=== PATIENT | female | born 1970 ===

== ENCOUNTER 2016-09-08 14:02 | Observation (INO) | payer OTHER ==
[2016-09-08 14:02] VITALS: BMI 34.7
[2016-09-08] MEDS ORDERED: Aspirin 325 mg EC Tablets PO STA (14:40)
--- NOTE | 2016-09-08 14:45 | ED PDOC ---
Arrival/HPI - General Chief Complaint: Chest Pain Time Seen by Provider: 09/08/16 14:20 Historian: Patient, Other (Friend, who translated for patient) - History of Present Illness Narrative History of Present Illness (Text): 09/08/16 14:41 A 46 year old female presents to the emergency department complaining of left sided chest pain since this morning. History obtained through friend who translated for patient. Patient reports radiating pain towards left back, left shoulder and left arm. Patient notes dyspnea on exertion but denies any fever, chills, nausea, vomiting, abdominal pain, headache, dizziness, diaphoresis or any other complaints. Patient reports prior to this morning she was feeling well and denied any complaints. Patients last menstrual period was 4 months ago. PMD: Dr. Casey Mays Time/Duration: Other (This morning) Symptom Course: Unchanged Quality: Other Context: Home Associated Symptoms (Text): 09/08/16 15:32 Nurse Prn reports that the patient went to bed last night feeling fine. She woke up this morning and was well. She developed some nausea after waking up. She then developed chest pain on the left side which she describes as an aching. The pain radiates into her back and left shoulder and left upper extremity. There is some dyspnea on exertion. No diaphoresis. No dizziness. She is currently pain-free. Past Medical History - Provider Review Nursing Documentation Reviewed: Yes - Tetanus Immunization Tetanus Immunization: Unknown - Cardiac Hx Cardiac Disorders: Yes Hx Hyperlipemia: Yes - Pulmonary Hx Respiratory Disorders: No - Neurological Hx Neurological Disorder: No - HEENT Hx HEENT Disorder: No - Renal Hx Renal Disorder: No - Endocrine/Metabolic Hx Endocrine Disorders: No - Hematological/Oncological Hx Blood Disorders: Yes Hx Hepatitis B: Yes - Integumentary Hx Dermatological Disorder: No - Musculoskeletal/Rheumatological Hx Musculoskeletal Disorders: No - Gastrointestinal Hx Gastrointestinal Disorders: No - Genitourinary/Gynecological Hx Genitourinary Disorders: No - Psychiatric Hx Psychophysiologic Disorder: No Hx Depression: No Hx Emotional Abuse: No Hx Physical Abuse: No Hx Substance Use: No - Surgical History Hx Appendectomy: Yes Hx Section: Yes - Anesthesia Hx Anesthesia: Yes Hx Anesthesia Reactions: No Hx Malignant Hyperthermia: No - Suicidal Assessment Feels Threatened In Home Enviroment: No Family/Social History - Physician Review Nursing Documentation Reviewed: Yes Family/Social History: No Known Family HX Smoking Status: Never Smoked Hx Alcohol Use: Yes (Occasionally) Hx Substance Use: No Hx Substance Use Treatment: No Allergies/Home Meds Allergies/Adverse Reactions: Allergies No Known Allergies Allergy (Verified 09/08/16 14:12) Home Medications: Home Meds Medication Instructions Recorded Confirmed No Known Home Med 11/19/11 09/08/16 Review of Systems - Physician Review All systems were reviewed & negative as marked: Yes - Review of Systems Constitutional: absent: Fevers, Night Sweats Respiratory: SOB. absent: Cough, Wheezing Cardiovascular: Chest Pain (Radiating to left back, shoulder and arm), CONNELLY Gastrointestinal: absent: Abdominal Pain, Nausea, Vomiting Neurological: absent: Headache, Dizziness Endocrine: absent: Diaphoresis Physical Exam Vital Signs Reviewed: Yes Vital Signs Temp Pulse Resp BP Pulse Ox 09/08/16 16:02 86 18 155/94 H 100 09/08/16 14:38 97.9 F 90 18 174/95 H 100 09/08/16 14:14 98.1 F 94 H 17 162/95 H 99 Temperature: Afebrile Blood Pressure: Hypertensive Pulse: Regular Respiratory Rate: Normal Appearance: Positive for: Non-Toxic, Comfortable, Other (Obese female) Pain Distress: None Mental Status: Positive for: Alert and Oriented X 3 - Systems Exam Head: Present: Atraumatic, Normocephalic Pupils: Present: PERRL Extroacular Muscles: Present: EOMI Conjunctiva: Present: Normal Mouth: Present: Moist Mucous Membranes Pharnyx: No: ERYTHEMA, EXUDATE, TONSILS ENLARGED Neck: Present: Normal Range of Motion Respiratory/Chest: Present: Clear to Auscultation, Good Air Exchange. No: Respiratory Distress, Accessory Muscle Use, Tender to Palpation Cardiovascular: Present: Regular Rate and Rhythm, Normal S1, S2. No: Murmurs Abdomen: Present: Normal Bowel Sounds. No: Tenderness, Distention, Peritoneal Signs, Rebound, Guarding Back: Present: Normal Inspection Upper Extremity: Present: Normal Inspection. No: Cyanosis, Edema Lower Extremity: Present: Normal Inspection. No: Edema Neurological: Present: GCS=15, CN II-XII Intact, Speech Normal, Motor Func Grossly Intact Skin: Present: Warm, Dry, Normal Color. No: Rashes Psychiatric: Present: Alert, Oriented x 3, Normal Insight, Normal Concentration Medical Decision Making ED Course and Treatment: 09/08/16 14:40 Impression: A 46 year old female with left sided chest pain radiating to left back, shoulder and arm. Patient notes dyspnea on exertion. Plan: -- Chest xray -- EKG -- Labs -- Aspirin -- Reassess and disposition Prior Visits: Notes and results from previous visits were reviewed. Patient last seen in the ED on 10/10/14 for paresthesia. Progress Notes: 09/08/16 15:34 EKG shows normal sinus rhythm rate approximately [address] or T-wave changes 09/08/16 18:[address]I Dodd - Lab Interpretations Lab Results: 09/08/16 15:00 09/08/16 15:00 Lab Results 09/08/16 15:00: WBC 8.2, RBC 4.89, Hgb 12.9, Hct 40.0, MCV 81.8, MCH 26.4, MCHC 32.3, RDW 14.7 H, Plt Count 222, MPV 12.6 H, Gran % 68.6 H, Lymph % (Auto) 22.9 , [place] % (Auto) 7.3 H, Eos % (Auto) 1.1 L, Baso % (Auto) 0.1, Gran # 5.65, Lymph # 1.9, [place] # 0.6, Eos # 0.1, Baso # 0.01, PT 10.5, INR 0.97, APTT 26.8, D -Dimer, Quantitative 0.21, Sodium 142, Potassium 3.7, Chloride 102, Carbon Dioxide 31, Anion Gap 13, BUN 13, Creatinine 0.7, Est GFR ( Amer) > 60, Est GFR (Non-Af Amer) > 60, Random Glucose 82, Calcium 9.9, Total Bilirubin 0.6 , AST 30, ALT 49, Alkaline Phosphatase 94, Lactate Dehydrogenase 490, Total Creatine Kinase 100, Troponin I < 0.01, NT-Pro-B Natriuret Pep 97.2, Total Protein 8.5 H, Albumin 4.4, Globulin 4.1, Albumin/Globulin Ratio 1.1 I have reviewed the lab results: Yes - RAD Interpretation Radiology Orders: 09/08/16 14:41 CHEST PORTABLE [RAD] Stat - Medication Orders Current Medication Orders: Enoxaparin Sodium (Lovenox) 40 mg SC DAILY AMADEO PRN Reason: Protocol Ibuprofen (Motrin Tab) 400 mg PO Q6 PRN PRN Reason: Pain, Mild (1-3) Metoprolol Tartrate (Lopressor) 25 mg PO BID [facility] Ondansetron HCl (Zofran Inj) 4 mg IVP Q6 PRN PRN Reason: Nausea/Vomiting Pantoprazole Sodium (Protonix Ec Tab) 40 mg PO DAILY [facility] Last Admin: 09/08/16 17:04 Dose: 40 MG Discontinued Medications Aspirin (Ecotrin) 325 mg PO STAT STA Stop: 09/08/16 14:41 Last Admin: 09/08/16 15:00 Dose: 325 MG Aspirin (Ecotrin) 81 mg PO STAT STA Stop: 09/08/16 16:30 Last Admin: 09/08/16 16:44 Dose: Nitroglycerin (Nitro-Bid 2% Oint) 1 ea TOP STAT STA Stop: 09/08/16 15:50 Last Admin: 09/08/16 16:00 Dose: 1 EA - Scribe Statement The provider has reviewed the documentation as recorded by the Any Isaac Provider Scribe Attestation: All medical record entries made by the Scribe were at my direction and personally dictated by me. I have reviewed the chart and agree that the record accurately reflects my personal performance of the history, physical exam, medical decision making, and the department course for this patient. I have also personally directed, reviewed, and agree with the discharge instructions and disposition. Disposition/Present on Arrival - Present on Arrival Any Indicators Present on Arrival: No History of DVT/PE: No History of Uncontrolled Diabetes: No Urinary Catheter: No History of Decub. Ulcer: No History Surgical Site Infection Following: None - Disposition Have Diagnosis and Disposition been Completed?: Yes Diagnosis: Chest pain, Hypertension, Nausea Disposition: HOSPITALIZED Disposition Time: 15:51 Patient Plan: Observation, Telemetry Patient Problems: Current Active Problems Problem Status Diagnosed Chest pain Acute Hypertension Acute Nausea Acute Condition: GOOD
[2016-09-08 15:09] LABS: ADD MANUAL DIFF? NO
[2016-09-08 15:15] LABS: BASO # 0.01 K/mm3 (0.0-2.0); BASO % 0.1 % (0.0-3.0); EOS # 0.1 (0.0-0.7); EOS % 1.1 % (1.5-5.0); GRAN # 5.65 (1.4-6.5); GRAN % 68.6 % (50.0-68.0); LYMPH # 1.9 (1.2-3.4); LYMPH % 22.9 % (22.0-35.0); MEAN CELL VOLUME 81.8 fL (80.0-105.0); MEAN CORPUSCULAR HEMOGLOBIN 26.4 pg (25.0-35.0); MEAN CORPUSCULAR HGB CONC 32.3 g/dl (31.0-37.0); MEAN PLATELET VOLUME 12.6 fl (7.0-11.0); MONO # 0.6 (0.1-0.6); MONO % 7.3 % (1.0-6.0); PLATELET COUNT 222 10^3/uL (120.0-450.0); RED CELL DISTRIBUTION WIDTH 14.7 % (11.5-14.5); WHITE BLOOD COUNT 8.2 10^3/ul (4.5-11.0)
[2016-09-08 15:22] LABS: ALB/GLOB RATIO 1.1 (1.1-1.8); ALKALINE PHOSPHATASE 94 U/L (38-133); ALT/SGPT 49 U/L (7-56); AST/SGOT 30 U/L (15-39); BILIRUBIN,TOTAL 0.6 mg/dL (0.2-1.3); BLOOD UREA NITROGEN 13 mg/dL (7-21); CALCIUM 9.9 mg/dL (8.4-10.5); CARBON DIOXIDE 31 mmol/L (21-33); CHLORIDE 102 mmol/L (98-107); GFR AFRICAN-AMERICAN > 60; GLUCOSE,RANDOM 82 mg/dL (70-110); POTASSIUM 3.7 mmol/L (3.6-5.0); SODIUM 142 mmol/L (132-148); TOTAL PROTEIN 8.5 g/dL (5.8-8.3)
[2016-09-08 15:27] LABS: INR 0.97 (0.93-1.08); PARTIAL THROMBOPLASTIN TIME 26.8 Seconds (23.7-30.8)
[2016-09-08 15:34] LABS: D DIMER 0.21 mg/L FEU (0-0.50)
[2016-09-08 15:42] LABS: TROPONIN I < 0.01 ng/mL
[2016-09-08] MEDS ORDERED: Nitroglycerin 2% Ointment Foilpak UD TOP STA (15:49)
--- NOTE | 2016-09-08 16:35 | CP.PCM.HP ---
<Rea Norton - Last Filed: 09/08/16 16:38> History of Present Illness - History of Present Illness History of Present Illness: CC: Chest pain 46 year old female with no significant past medical history presents to hospital with chest pain that started this morning. Patient's family is at bedside and help translate. At 8 am in the morning patient began to feel nauseous. 2 hours later patient developed chest pain located in center of chest that radiated to left side, straight back and left arm. Pain felt like an ache. No relieving or aggravating factors. Patient has never experienced anything like this before. Denies any trauma to area or any pain with palpation. Patient denies having any SOB, CP currently, abd pain, N/V/D/C, dysuria, LE pain. PMHx: denies Sx: c section, appendectomy NKDA Medications: none Social: denies tobacco, ETOH or drug use PMD: Dr. Casey Mays Present on Admission - Present on Admission Any Indicators Present on Admission: No Review of Systems - Review of Systems All systems: reviewed and no additional remarkable complaints except Past Patient History - Tetanus Immunizations Tetanus Immunization: Unknown - Past Social History Smoking Status: Never Smoked Chewing Tobacco Use: No Cigar Use: No Alcohol: None Drugs: Denies Home Situation {Lives}: With Family - CARDIAC Hx Cardiac Disorders: Yes - PULMONARY Hx Respiratory Disorders: No - NEUROLOGICAL Hx Neurological Disorder: No - HEENT Hx HEENT Problems: No - RENAL Hx Chronic Kidney Disease: No - ENDOCRINE/METABOLIC Hx Endocrine Disorders: No - HEMATOLOGICAL/ONCOLOGICAL Hx Blood Disorders: Yes Hx Hepatitis B: Yes - INTEGUMENTARY Hx Dermatological Problems: No - MUSCULOSKELETAL/RHEUMATOLOGICAL Hx Musculoskeletal Disorders: No - GASTROINTESTINAL Hx Gastrointestinal Disorders: No - GENITOURINARY/GYNECOLOGICAL Hx Genitourinary Disorders: No - PSYCHIATRIC Hx Psychophysiologic Disorder: No Hx Depression: No Hx Emotional Abuse: No Hx Physical Abuse: No Hx Substance Use: No - SURGICAL HISTORY Hx Appendectomy: Yes Hx Section: Yes - ANESTHESIA Hx Anesthesia: Yes Hx Anesthesia Reactions: No Hx Malignant Hyperthermia: No Meds Allergies/Adverse Reactions: Allergies Allergy/AdvReac Type Severity Reaction Status Date / Time No Known Allergies Allergy Verified 09/08/16 14:12 Physical Exam - Constitutional Appears: Non-toxic, No Acute Distress - Head Exam Head Exam: ATRAUMATIC, NORMAL INSPECTION - Eye Exam Eye Exam: EOMI Pupil Exam: PERRL - ENT Exam ENT Exam: Mucous Membranes Moist - Respiratory Exam Respiratory Exam: Clear to Auscultation Bilateral, NORMAL BREATHING PATTERN. absent: Rales, Rhonchi, Wheezes - Cardiovascular Exam Cardiovascular Exam: REGULAR RHYTHM, +S1, +S2. absent: Diastolic murmur, Gallop , Rubs, Systolic Murmur Additional comments: left sided tenderness to palpation - GI/Abdominal Exam GI & Abdominal Exam: Normal Bowel Sounds, Soft. absent: Distended, Firm, Guarding, Rigid, Tenderness - Extremities Exam Extremities exam: Negative for: calf tenderness, pedal edema, tenderness - Neurological Exam Neurological exam: Alert, Oriented x3 - Psychiatric Exam Psychiatric exam: Normal Affect, Normal Mood - Skin Skin Exam: Dry, Intact, Normal Color, Warm Results - Vital Signs Recent Vital Signs: Last Vital Signs Temp 97.9 F 09/08/16 14:38 Pulse 86 09/08/16 16:02 Resp 18 09/08/16 16:02 BP 155/94 H 09/08/16 16:02 Pulse Ox 100 09/08/16 16:02 - Labs Result Diagrams: 09/08/16 15:00 09/08/16 15:00 Labs: Laboratory Results - last 24 hr 09/08/16 15:00 WBC 8.2 RBC 4.89 Hgb 12.9 Hct 40.0 MCV 81.8 MCH 26.4 MCHC 32.3 RDW 14.7 H Plt Count 222 MPV 12.6 H Gran % 68.6 H Lymph % (Auto) 22.9 [place] % (Auto) 7.3 H Eos % (Auto) 1.1 L Baso % (Auto) 0.1 Gran # 5.65 Lymph # 1.9 [place] # 0.6 Eos # 0.1 Baso # 0.01 PT 10.5 INR 0.97 APTT 26.8 D-Dimer, Quantitative 0.21 Sodium 142 Potassium 3.7 Chloride 102 Carbon Dioxide 31 Anion Gap 13 BUN 13 Creatinine 0.7 Est GFR ( Amer) > 60 Est GFR (Non-Af Amer) > 60 Random Glucose 82 Calcium 9.9 Total Bilirubin 0.6 AST 30 ALT 49 Alkaline Phosphatase 94 Lactate Dehydrogenase 490 Total Creatine Kinase 100 Troponin I < 0.01 NT-Pro-B Natriuret Pep 97.2 Total Protein 8.5 H Albumin 4.4 Globulin 4.1 Albumin/Globulin Ratio 1.1 - EKG Data EKG Interpreted by: ER Physician Assessment & Plan - Assessment and Plan (Free Text) Assessment: 46 year old female with no significant past medical history is admitted for chest pain r/o ACS. Initial troponin is negative and EKG shows NSR with no ST changes. D dimer is negative. Pro BNP is WNL. Patient is hypertensive in ED but afebrile. 1. Chest pain r.o ACS - Admit to tele floor - Will get serial trops and EKG - Will get echo - Cardiology, Dr. Bernardo is consulted - Aspirin 81 mg po qd. Pt received stat dose of aspirin in ED - Ibuprofen for pain - Zofran for nausea - CXR ordered - Will check hgbA1c and lipid panel 2. HTN - Lopressor 25 mg po BID - will continue to monitor vital signs 3. Prophylaxis - Lovenox 40 mg QD, SCDs - Protonix 40 mg QD Case discussed with attending, Dr. Dodd - Date & Time Date: 09/08/16 Time: 16:41 <Kassandra Dodd - Last Filed: 09/09/16 11:57> Results - Vital Signs Recent Vital Signs: Last Vital Signs Temp 98.2 F 09/09/16 00:01 Pulse 79 09/09/16 10:00 Resp 18 09/09/16 00:01 BP 132/82 09/09/16 00:01 Pulse Ox 99 09/08/16 18:49 - Labs Result Diagrams: 09/09/16 06:00 09/09/16 06:00 Labs: Laboratory Results - last 24 hr 09/09/16 09/09/16 09/09/16 06:00 06:00 06:30 WBC 7.8 RBC 4.67 Hgb 12.2 Hct 38.2 MCV 81.8 MCH 26.1 MCHC 31.9 RDW 14.9 H Plt Count 229 MPV 12.1 H Gran % 62.0 Lymph % (Auto) 27.9 [place] % (Auto) 8.3 H Eos % (Auto) 1.7 Baso % (Auto) 0.1 Gran # 4.84 Lymph # 2.2 [place] # 0.7 H Eos # 0.1 Baso # 0.01 Sodium 141 Potassium 3.7 Chloride 104 Carbon Dioxide 27 Anion Gap 14 BUN 16 Creatinine 0.7 Est GFR ( Amer) > 60 Est GFR (Non-Af Amer) > 60 Random Glucose 88 Calcium 9.4 Troponin I < 0.01 Triglycerides 198 H Cholesterol 194 LDL Cholesterol Direct 91 HDL Cholesterol 63 H Urine HCG, Qual 09/09/16 09:00 WBC RBC Hgb Hct MCV MCH MCHC RDW Plt Count MPV Gran % Lymph % (Auto) [place] % (Auto) Eos % (Auto) Baso % (Auto) Gran # Lymph # [place] # Eos # Baso # Sodium Potassium Chloride Carbon Dioxide Anion Gap BUN Creatinine Est GFR ( Amer) Est GFR (Non-Af Amer) Random Glucose Calcium Troponin I Triglycerides Cholesterol LDL Cholesterol Direct HDL Cholesterol Urine HCG, Qual Negative Attending/Attestation - Attestation I have personally seen and examined this patient.: Yes I have fully participated in the care of the patient.: Yes I have reviewed all pertinent clinical information: Yes Notes (Text): I have seen and examined the patient at bedside. Agree with the above note with the following additions/ exceptions: Briefly this is 46 year old obese female who came for evaluation of chest pain. She has never had similar kind of chest pain in the past. First set of troponin and ekg is normal. Patient is hemodynamically stable. Will observe patient in telemetry for serial troponin, ekg, lipid panel and echocardiogram. Upon discharge patient will follow up with Dr Mays. Dr Kassandra Dodd
[2016-09-08] MEDS: Pantoprazole 40 mg EC Tab PO SCH (17:04)
[2016-09-08 18:51] VITALS: O2SAT 99
[2016-09-09 00:06] VITALS: RESP 18; TEMP 98.2
[2016-09-09 07:02] LABS: ADD MANUAL DIFF? NO
[2016-09-09 07:11] LABS: BASO # 0.01 K/mm3 (0.0-2.0); BASO % 0.1 % (0.0-3.0); EOS # 0.1 (0.0-0.7); EOS % 1.7 % (1.5-5.0); GRAN # 4.84 (1.4-6.5); HEMATOCRIT 38.2 % (36.0-48.0); LYMPH # 2.2 (1.2-3.4); LYMPH % 27.9 % (22.0-35.0); MEAN CELL VOLUME 81.8 fL (80.0-105.0); MEAN CORPUSCULAR HEMOGLOBIN 26.1 pg (25.0-35.0); MEAN CORPUSCULAR HGB CONC 31.9 g/dl (31.0-37.0); MEAN PLATELET VOLUME 12.1 fl (7.0-11.0); MONO # 0.7 (0.1-0.6); MONO % 8.3 % (1.0-6.0); PLATELET COUNT 229 10^3/uL (120.0-450.0); RED CELL DISTRIBUTION WIDTH 14.9 % (11.5-14.5); WHITE BLOOD COUNT 7.8 10^3/ul (4.5-11.0)
[2016-09-09 07:52] LABS: BLOOD UREA NITROGEN 16 mg/dL (7-21); CALCIUM 9.4 mg/dL (8.4-10.5); CARBON DIOXIDE 27 mmol/L (21-33); CHLORIDE 104 mmol/L (95-110); CHOLESTEROL 194 mg/dL (130-200); GFR AFRICAN-AMERICAN > 60; GLUCOSE,RANDOM 88 mg/dL (70-110); POTASSIUM 3.7 mmol/L (3.6-5.0); SODIUM 141 mmol/L (132-148)
[2016-09-09] MEDS: Pantoprazole 40 mg EC Tab PO SCH (09:36)
[2016-09-09] MEDS ORDERED: Enoxaparin 40 mg Syringe SC SCH (10:00)
--- NOTE | 2016-09-09 11:10 | CP.PCM.DIS ---
<Sravani Zaidi - Last Filed: 09/09/16 12:33> Provider - Provider Date of Admission: 09/08/16 15:51 Attending physician: Kassandra Dodd MD Primary care physician: Casey Mays Time Spent in preparation of Discharge (in minutes): 35 Hospital Course - Lab Results Lab Results: Most Recent Lab Values WBC 7.8 10^3/ul (4.5-11.0) 09/09/16 06:00 RBC 4.67 10^6/uL (3.5-6.1) 09/09/16 06:00 Hgb 12.2 gm/dL (12.0-16.0) 09/09/16 06:00 Hct 38.2 % (36.0-48.0) 09/09/16 06:00 MCV 81.8 fL (80.0-105.0) 09/09/16 06:00 MCH 26.1 pg (25.0-35.0) 09/09/16 06:00 MCHC 31.9 g/dl (31.0-37.0) 09/09/16 06:00 RDW 14.9 % (11.5-14.5) H 09/09/16 06:00 Plt Count 229 10^3/uL (120.0-450.0) 09/09/16 06:00 MPV 12.1 fl (7.0-11.0) H 09/09/16 06:00 Gran % 62.0 % (50.0-68.0) 09/09/16 06:00 Lymph % (Auto) 27.9 % (22.0-35.0) 09/09/16 06:00 [place] % (Auto) 8.3 % (1.0-6.0) H 09/09/16 06:00 Eos % (Auto) 1.7 % (1.5-5.0) 09/09/16 06:00 Baso % (Auto) 0.1 % (0.0-3.0) 09/09/16 06:00 Gran # 4.84 (1.4-6.5) 09/09/16 06:00 Lymph # 2.2 (1.2-3.4) 09/09/16 06:00 [place] # 0.7 (0.1-0.6) H 09/09/16 06:00 Eos # 0.1 (0.0-0.7) 09/09/16 06:00 Baso # 0.01 K/mm3 (0.0-2.0) 09/09/16 06:00 PT 10.5 Seconds (9.9-11.8) 09/08/16 15:00 INR 0.97 (0.93-1.08) 09/08/16 15:00 APTT 26.8 Seconds (23.7-30.8) 09/08/16 15:00 D-Dimer, Quantitative 0.21 mg/L FEU (0-0.50) 09/08/16 15:00 Sodium 141 mmol/L (132-148) 09/09/16 06:00 Potassium 3.7 mmol/L (3.6-5.0) 09/09/16 06:00 Chloride 104 mmol/L (95-110) 09/09/16 06:00 Carbon Dioxide 27 mmol/L (21-33) 09/09/16 06:00 Anion Gap 14 (10-20) 09/09/16 06:00 BUN 16 mg/dL (7-21) 09/09/16 06:00 Creatinine 0.7 mg/dL (0.5-1.4) 09/09/16 06:00 Est GFR ( Amer) > 60 09/09/16 06:00 Est GFR (Non-Af Amer) > 60 09/09/16 06:00 Random Glucose 88 mg/dL (70-110) 09/09/16 06:00 Calcium 9.4 mg/dL (8.4-10.5) 09/09/16 06:00 Total Bilirubin 0.6 mg/dL (0.2-1.3) 09/08/16 15:00 AST 30 U/L (15-39) 09/08/16 15:00 ALT 49 U/L (7-56) 09/08/16 15:00 Alkaline Phosphatase 94 U/L (38-133) 09/08/16 15:00 Lactate Dehydrogenase 490 U/L (333-699) 09/08/16 15:00 Total Creatine Kinase 100 U/L (35-230) 09/08/16 15:00 Troponin I < 0.01 ng/mL 09/09/16 06:30 NT-Pro-B Natriuret Pep 97.2 pg/mL (0-450) 09/08/16 15:00 Total Protein 8.5 g/dL (5.8-8.3) H 09/08/16 15:00 Albumin 4.4 g/dL (3.0-4.8) 09/08/16 15:00 Globulin 4.1 gm/dL 09/08/16 15:00 Albumin/Globulin Ratio 1.1 (1.1-1.8) 09/08/16 15:00 Triglycerides 198 mg/dL (35-160) H 09/09/16 06:00 Cholesterol 194 mg/dL (130-200) 09/09/16 06:00 LDL Cholesterol Direct 91 mg/dL (0-129) 09/09/16 06:00 HDL Cholesterol 63 mg/dL (29-60) H 09/09/16 06:00 Urine HCG, Qual Negative (NEGATIVE) 09/09/16 09:00 - Hospital Course Hospital Course: This is a 46Y F with no PMH admitted for chest pain. Patient had an EKG which showed NSR. A repeat EKG in the AM showed no changes. Her troponin was negative x 2. Chest XR showed no active disease. Her lipid panel showed elevated triglycerides although the labs were taken non-fasting. The patient reports feeling better today. She was resting comfortably in bed. She denies CP, SOB, n/ v/d, numbness/tingling. She also had an echo this morning. Final results are pending. I will follow up and inform the patient the final results of all her tests when they are completed. The patient reports her PMD is in [facility] and would like to switch to a PMD in [place]. I gave her some recommendations of private doctors, but recommended that she calls her insurance to see if the physician is covered under her insurance. It is recommended in the future that the patient follows up with a career counselor to get an outpatient stress test. She was also found to be hypertensive on admission. She will be discharged with Lisinopril 5mg once daily. She can have a repeat BP check in one to two weeks with her PMD. - Date & Time of H&P Date of H&P: 09/08/16 Time of H&P: 16:30 Discharge Exam - Head Exam Head Exam: ATRAUMATIC, NORMAL INSPECTION Discharge Plan - Discharge Medications Prescriptions: Lisinopril [Zestril] 5 mg PO DAILY #30 tab - Follow Up Plan Condition: GOOD Disposition: HOME/ ROUTINE Instructions: Chest Pain (DC), Chest Pain (GEN), Heart Healthy Diet (DC), Heart Healthy Diet (GEN) Additional Instructions: 1. Take Lisinopril 5mg once daily for high blood pressure. 2. Recheck blood pressure in 1-2 weeks with primary care doctor. 3. Will call with final results of echo and HgbA1c. 4. If want to change to PMD that is closer to home, please follow up with insurance to see who is covered. 5. Recommend to follow up with career counselor covered with insurance for outpatient stress test. Referrals: [id number] [Other] Clinical Quality Measures - CQM - Heart Failure Ejection Fraction: 40 % or Greater REECE Inhibitor Prescribed: Yes - Date & Time of Discharge Summary Date of Discharge Summary: 09/09/16 Time of Discharge Summary: 12:33 <Kassandra Dodd - Last Filed: 09/10/16 14:54> Provider - Provider Date of Admission: 09/08/16 15:51 Attending physician: Kassandra Dodd MD Primary care physician: [facility] Course - Lab Results Lab Results: Most Recent Lab Values WBC 7.8 10^3/ul (4.5-11.0) 09/09/16 06:00 RBC 4.67 10^6/uL (3.5-6.1) 09/09/16 06:00 Hgb 12.2 gm/dL (12.0-16.0) 09/09/16 06:00 Hct 38.2 % (36.0-48.0) 09/09/16 06:00 MCV 81.8 fL (80.0-105.0) 09/09/16 06:00 MCH 26.1 pg (25.0-35.0) 09/09/16 06:00 MCHC 31.9 g/dl (31.0-37.0) 09/09/16 06:00 RDW 14.9 % (11.5-14.5) H 09/09/16 06:00 Plt Count 229 10^3/uL (120.0-450.0) 09/09/16 06:00 MPV 12.1 fl (7.0-11.0) H 09/09/16 06:00 Gran % 62.0 % (50.0-68.0) 09/09/16 06:00 Lymph % (Auto) 27.9 % (22.0-35.0) 09/09/16 06:00 [place] % (Auto) 8.3 % (1.0-6.0) H 09/09/16 06:00 Eos % (Auto) 1.7 % (1.5-5.0) 09/09/16 06:00 Baso % (Auto) 0.1 % (0.0-3.0) 09/09/16 06:00 Gran # 4.84 (1.4-6.5) 09/09/16 06:00 Lymph # 2.2 (1.2-3.4) 09/09/16 06:00 [place] # 0.7 (0.1-0.6) H 09/09/16 06:00 Eos # 0.1 (0.0-0.7) 09/09/16 06:00 Baso # 0.01 K/mm3 (0.0-2.0) 09/09/16 06:00 PT 10.5 Seconds (9.9-11.8) 09/08/16 15:00 INR 0.97 (0.93-1.08) 09/08/16 15:00 APTT 26.8 Seconds (23.7-30.8) 09/08/16 15:00 D-Dimer, Quantitative 0.21 mg/L FEU (0-0.50) 09/08/16 15:00 Sodium 141 mmol/L (132-148) 09/09/16 06:00 Potassium 3.7 mmol/L (3.6-5.0) 09/09/16 06:00 Chloride 104 mmol/L (95-110) 09/09/16 06:00 Carbon Dioxide 27 mmol/L (21-33) 09/09/16 06:00 Anion Gap 14 (10-20) 09/09/16 06:00 BUN 16 mg/dL (7-21) 09/09/16 06:00 Creatinine 0.7 mg/dL (0.5-1.4) 09/09/16 06:00 Est GFR ( Amer) > 60 09/09/16 06:00 Est GFR (Non-Af Amer) > 60 09/09/16 06:00 Random Glucose 88 mg/dL (70-110) 09/09/16 06:00 Hemoglobin A1c 5.7 % (4.2-6.5) 09/09/16 06:00 Calcium 9.4 mg/dL (8.4-10.5) 09/09/16 06:00 Total Bilirubin 0.6 mg/dL (0.2-1.3) 09/08/16 15:00 AST 30 U/L (15-39) 09/08/16 15:00 ALT 49 U/L (7-56) 09/08/16 15:00 Alkaline Phosphatase 94 U/L (38-133) 09/08/16 15:00 Lactate Dehydrogenase 490 U/L (333-699) 09/08/16 15:00 Total Creatine Kinase 100 U/L (35-230) 09/08/16 15:00 Troponin I < 0.01 ng/mL 09/09/16 06:30 NT-Pro-B Natriuret Pep 97.2 pg/mL (0-450) 09/08/16 15:00 Total Protein 8.5 g/dL (5.8-8.3) H 09/08/16 15:00 Albumin 4.4 g/dL (3.0-4.8) 09/08/16 15:00 Globulin 4.1 gm/dL 09/08/16 15:00 Albumin/Globulin Ratio 1.1 (1.1-1.8) 09/08/16 15:00 Triglycerides 198 mg/dL (35-160) H 09/09/16 06:00 Cholesterol 194 mg/dL (130-200) 09/09/16 06:00 LDL Cholesterol Direct 91 mg/dL (0-129) 09/09/16 06:00 HDL Cholesterol 63 mg/dL (29-60) H 09/09/16 06:00 Urine HCG, Qual Negative (NEGATIVE) 09/09/16 09:00 Attending/Attestation - Attestation I have personally seen and examined this patient.: Yes I have fully participated in the care of the patient.: Yes I have reviewed all pertinent clinical information, including history, physical exam and plan: Yes Notes (Text): I have seen and examined the patient at bedside. Agree with the above note with the following additions/ exceptions: Briefly this is 46 year old obese female who came for evaluation of chest pain. She has never had similar kind of chest pain in the past. Serial troponin and ekg is normal. Patient is hemodynamically stable. Chest pain has resolved. Echocardiogram is done however result is pending. Outpatient stress test recommended for the patient. Advised patient to call us back in 2-3 days to follow up on echo result. Upon discharge patient will follow up with Dr Mays. Dr Kassandra Dodd
--- NOTE | 2016-09-09 11:24 | CARD ---
APPROVED REPORT EKG Measurement Heart [id number] [place] [id number] <Conclusion> Normal sinus rhythm Possible Left atrial enlargement Borderline ECG
--- NOTE | 2016-09-09 11:34 | CARD ---
APPROVED REPORT EKG Measurement Heart [id number] MD [id number] <Conclusion> Normal sinus rhythm Normal ECG
--- NOTE | 2016-09-09 12:49 | RAD ---
HISTORY: chest pain COMPARISON: 12/25/2011 FINDINGS: LUNGS: No active pulmonary disease. PLEURA: No significant pleural effusion identified, no pneumothorax apparent. CARDIOVASCULAR: Normal. OSSEOUS STRUCTURES: No significant abnormalities. VISUALIZED UPPER ABDOMEN: Normal. OTHER FINDINGS: None. IMPRESSION: No active disease.
[2016-09-09 15:27] VITALS: BP 125/70; PULSE 65
--- NOTE | 2016-09-10 19:50 | CARD ---
APPROVED REPORT EXAM: Two-dimensional and M-mode echocardiogram with Doppler and color Doppler. 2D DIMENSIONS Left Atrium (2D)2.7 (1.6-4.0cm)IVSd1.1 (0.7-1.1cm) LVDd4.1 (3.9-5.9cm)PWd1.1 (0.7-1.1cm) LVDs2.9 (2.5-4.0cm)FS (%) 29.4 % LVEF (%)56.8 (>50%) M-Mode DIMENSIONS Left Atrium (MM)3.30 (2.5-4.0cm)Aortic Root2.90 (2.2-3.7cm) Aortic Cusp Exc.1.90 (1.5-2.0cm) Aortic Valve AoV Peak Gamgsjmz283.0cm/sAoV VTI26.3cmAO Peak GR.7mmHg LVOT Peak Gogrgdwv87.2cm/sLVOT VTI16.60cmAO Mean GR.4mmHg Mitral Valve MV E Eyptrfqo18.6cm/sMV A Xztrxrsz10.7cm/sE/A ratio1.2 TDI Lateral E' Peak V7.60cm/sMedial E' Peak V5.85cm/sE/Lateral E'9.2 E/Medial E'11.9 Tricuspid Valve TR Peak Sbfskamz878qj/sTR Peak Gr.19mmHg LEFT VENTRICLE The left ventricle is normal size. There is normal left ventricular wall thickness. The left ventricular function is normal.EF-55-60% There is normal LV segmental wall motion. The left ventricular diastolic function is normal. No left ventricle thrombus noted on this study. There is no ventricular septal defect visualized. There is no left ventricular aneurysm. There is no mass noted in the left ventricle. RIGHT VENTRICLE The right ventricle is normal size. There is normal right ventricular wall thickness. The right ventricular systolic function is normal. ATRIA The left atrium size is normal. The right atrium size is normal. The interatrial septum is intact with no evidence for an atrial septal defect. AORTIC VALVE The aortic valve is thickened but opens well. No aortic regurgitation is present. There is no aortic valvular stenosis. There is no aortic valvular vegetation. MITRAL VALVE The mitral valve is thickened but opens well. Mitral regurgitation is trace. There is no mitral valve stenosis. There is no evidence of mitral valve prolapse. TRICUSPID VALVE The tricuspid valve leaflets are thickened , but open well. There is trace tricuspid regurgitation.RVSP-19 Mmof hg. There is no tricuspid valve stenosis. There is no tricuspid valve prolapse or vegetation. PULMONIC VALVE The pulmonary valve is normal in structure. GREAT VESSELS The aortic root is normal in size. The ascending aorta is normal in size. The pulmonary artery is normal. The IVC is normal in size and collapses >50% with inspiration. PERICARDIAL EFFUSION There is no pleural effusion. There is no pericardial effusion. <Conclusion> Normal chamber Size. EF-55-60% Trace MR/TR RVSP-19 mmof hg. no Vegetation or thrombus noted
== END 2016-09-09 16:59 | disposition home or self-care (01) ==
LOC: ED 14:02 → ERH 15:51 → 2RNO 18:36
PROVIDERS: ADMIT Hospitalist; ATTEND Hospitalist
DX: R07.9 Chest pain, unspecified (principal); I10 Essential (primary) hypertension; R11.0 Nausea
CPT/HCPCS: 36415; 71010; 80048; 80053; 80061; 82550; 83036; 83615; 83880; 84484; 84703; 85025; 85378; 85610; 85730; 93005; 93306; 99285; G0378; J1650

== ENCOUNTER 2017-01-01 20:28 | Emergency (ER) | payer OTHER ==
[2017-01-01 20:28] VITALS: BMI 34.7
--- NOTE | 2017-01-01 21:32 | ED PDOC ---
Arrival/HPI <Renny Ortiz - Last Filed: 01/02/17 01:03> - General Historian: Patient - History of Present Illness Symptom Onset: Sudden Symptom Course: Unchanged Activities at Onset: Light Context: Home <Melyssa Fields - Last Filed: 01/02/17 02:29> - General Chief Complaint: Abdominal Pain Time Seen by Provider: 01/01/17 21:29 - History of Present Illness Narrative History of Present Illness (Text): 01/01/17 21:31 46 year old female who presents to the ED with complaints of sudden left-sided abdominal pain radiating to her back. Patient states pain began suddenly at 15: 00 today. Patient describes pain as sharp and intermittent. Patient denies any chest pain, shortness of breath, fever, chills, nausea, vomiting, diarrhea, constipation, urinary symptoms, bowel/urinary incontinence, or any other complaints. Patient states she did not take any medication for pain at home. Patient was seen by her sign wirer yesterday and given a monitor to check for palpitations she been experiencing recently. 01/02/17 01:58 (Melyssa Fields) Past Medical History - Provider Review Nursing Documentation Reviewed: Yes - Tetanus Immunization Tetanus Immunization: Unknown - Cardiac Hx Cardiac Disorders: Yes Hx Hyperlipemia: Yes - Pulmonary Hx Respiratory Disorders: No - Neurological Hx Neurological Disorder: No - HEENT Hx HEENT Disorder: Yes Other/Comment: wears glasses - Renal Hx Renal Disorder: No - Endocrine/Metabolic Hx Endocrine Disorders: No - Hematological/Oncological Other/Comment: hx liver infection in childhood - Integumentary Hx Dermatological Disorder: No - Musculoskeletal/Rheumatological Hx Falls: No - Gastrointestinal Hx Gastrointestinal Disorders: No - Genitourinary/Gynecological Other/Comment: irreg. menstrual cycle - Psychiatric Hx Psychophysiologic Disorder: No Hx Emotional Abuse: No Hx Physical Abuse: No Hx Substance Use: No - Surgical History Hx Appendectomy: Yes Other/Comment: x 1 - Anesthesia Hx Anesthesia: Yes Hx Anesthesia Reactions: No Hx Malignant Hyperthermia: No - Suicidal Assessment Feels Threatened In Home Enviroment: No <Melyssa Fields - Last Filed: 01/02/17 02:29> Family/Social History - Physician Review Nursing Documentation Reviewed: Yes Family/Social History: Unknown Family HX Smoking Status: Never Smoked Hx Alcohol Use: No Hx Substance Use: No Hx Substance Use Treatment: No <Melyssa Fields T - Last Filed: 01/02/17 02:29> Allergies/Home Meds <Renny Ortiz - Last Filed: 01/02/17 01:03> <Melyssa Fields - Last Filed: 01/02/17 02:29> Allergies/Adverse Reactions: Allergies No Known Allergies Allergy (Verified 09/08/16 14:12) Review of Systems - Physician Review All systems were reviewed & negative as marked: Yes - Review of Systems Constitutional: Normal. absent: Fevers Eyes: Normal ENT: Normal Respiratory: Normal. absent: SOB, Cough Cardiovascular: Normal. absent: Chest Pain Gastrointestinal: Abdominal Pain. absent: Constipation, Diarrhea, Nausea, Vomiting Genitourinary Female: Normal. absent: Dysuria, Frequency, Hematuria, Urine Output Changes Musculoskeletal: absent: Neck Pain Skin: Normal. absent: Rash Neurological: Normal. absent: Headache, Dizziness Endocrine: Normal Hemo/Lymphatic: Normal Psychiatric: Normal <Melyssa Fields - Last Filed: 01/02/17 02:29> Physical Exam Vital Signs Reviewed: Yes Temperature: Afebrile Blood Pressure: Normal Pulse: Regular Respiratory Rate: Normal Appearance: Positive for: Well-Appearing, Non-Toxic, Comfortable Pain Distress: None Mental Status: Positive for: Alert and Oriented X 3 - Systems Exam Head: Present: Atraumatic, Normocephalic Pupils: Present: PERRL Extroacular Muscles: Present: EOMI Conjunctiva: Present: Normal Mouth: Present: Moist Mucous Membranes Neck: Present: Normal Range of Motion Respiratory/Chest: Present: Clear to Auscultation, Good Air Exchange. No: Respiratory Distress, Accessory Muscle Use Cardiovascular: Present: Regular Rate and Rhythm, Normal S1, S2. No: Murmurs Abdomen: Present: Tenderness (Mild left upper and lower abdominal tenderness), Normal Bowel Sounds. No: Distention, Peritoneal Signs, Rebound, Guarding Back: Present: Paraspinal Tenderness (Left flank tenderness). No: CVA Tenderness, Midline Tenderness Upper Extremity: Present: Normal Inspection, Normal ROM, NORMAL PULSES. No: Cyanosis, Edema Lower Extremity: Present: Normal Inspection, NORMAL PULSES, Normal ROM. No: Edema Neurological: Present: GCS=15, Speech Normal Skin: Present: Warm, Dry, Normal Color. No: Rashes Psychiatric: Present: Alert, Oriented x 3, Normal Insight, Normal Concentration <Melyssa Fields - Last Filed: 01/02/17 02:29> Vital Signs Temp Pulse Resp BP Pulse Ox 01/02/17 01:14 98.0 F 71 16 123/77 99 01/01/17 22:34 83 18 129/78 96 01/01/17 20:44 98.8 F 94 H 18 99 01/01/17 20:33 98.8 F 94 H 18 128/86 99 Medical Decision Making <Renny Ortiz - Last Filed: 01/02/17 01:03> <Melyssa Fields - Last Filed: 01/02/17 02:29> ED Course and Treatment: 01/01/17 21:31 Patient is nontoxic well appearing with stable vital signs presenting with left- sided abdominal pain radiating to the back pt states pain is minimal and is refusing any medications for pain. CBC within normal limits CMP within normal limits Lipase within normal limits Urinalysis positive blood noted leukocytes (patient currently menstruating) CAT scan: FINDINGS: 6 mm nodular focus in association with pulmonary vascular malformation at the right lung base. The liver, spleen, pancreas and adrenal glands demonstrate no acute abnormalities. No CT evidence of acute cholecystitis. Ultrasound can be provide more sensitive evaluation of the biliary system. The kidneys are symmetric with no evidence of hydronephrosis. 2.2 cm left renal cyst, question peripheral calcification. The aorta is unremarkable. Evaluation of bowel limited without enteric contrast. Small hiatal hernia. The small and large bowel as visualized demonstrate no evidence of obstruction or clear focus of inflammation. Colonic diverticula. Status post appendectomy. Heterogeneous appearance to the uterus, question leiomyomatous changes. No ascites. No free air. Scoliosis. IMPRESSION: No definitive acute CT finding to correspond to reported history. 6 mm nodular focus in association with pulmonary vascular malformation at the right lung base. 2.2 cm left renal cyst, question peripheral calcification. Small hiatal hernia. Colonic diverticula. Heterogeneous appearance to the uterus, question leiomyomatous changes. Ultrasound can provide more sensitive evaluation of pelvic viscera. Patient reassessment: Patient nontoxic well-appearing no distress. Still refusing any medications for pain. Patient states pain is minimal. Discussed all results with patient in depth. discussed av malformation with patient; advised f/u with pulmonogist and sign wirer. A copy of the CAT scan result was given to the patient. Patient is currently being followed by a sign wirer for intermittent palpitations. It is currently on a Holter monitor. Patient verbalizes understanding of discharge instructions and need for immediate followup. all aspects of this case were discussed the attending of record. Impression: Abdominal pain, Cyst, kidney, av malformation Motrin every 6 hours as needed for pain Increase fluids Follow up with primary care physician within the next 2 days regarding yours CAT SCAN findings. Return immediately if symptoms worsen persist or if new concerning symptoms develop (Melyssa Fields) - Lab Interpretations Lab Results: 01/01/17 22:42 01/01/17 22:42 Lab Results 01/01/17 22:42: WBC 8.7, RBC 4.69, Hgb 12.7, Hct 38.7, MCV 82.5, MCH 27.1, MCHC 32.8, RDW 14.7 H, Plt Count 190, MPV 11.5 H, Gran % 67.3, Lymph % (Auto) 27.0, [place] % (Auto) 4.9, Eos % (Auto) 0.7 L, Baso % (Auto) 0.1, Gran # 5.85, Lymph # 2.4, [place] # 0.4, Eos # 0.1, Baso # 0.01 01/01/17 22:42: Sodium 140, Potassium 3.9, Chloride 104, Carbon Dioxide 25, Anion Gap 15, BUN 14, Creatinine 0.8, Est GFR ( Amer) > 60, Est GFR (Non- Af Amer) > 60, Random Glucose 91, Calcium 9.3, Total Bilirubin 0.4, AST 27, ALT 37, Alkaline Phosphatase 98, Total Protein 7.5, Albumin 4.2, Globulin 3.3, Albumin/Globulin Ratio 1.3, Lipase 193 01/01/17 22:42: Urine Color Dark yellow, Urine Appearance Cloudy, Urine pH 6.0, Ur Specific [place] >= 1.030, Urine Protein 30 H, Urine Glucose (UA) Negative, Urine Ketones Negative, Urine Blood Large H, Urine Nitrate Negative, Urine Bilirubin Small H, Urine Urobilinogen 1.0 H, Ur Leukocyte Esterase Negative, Urine RBC Tntc, Urine WBC 2 - 5, Ur Epithelial Cells 0 - 2, Urine Bacteria Mod - RAD Interpretation Radiology Orders: 01/01/17 22:13 ABD & PELVIS IV CONTRAST ONLY [CT] Stat - Medication Orders Current Medication Orders: Discontinued Medications Sodium Chloride (Sodium Chloride 0.9%) 1,000 mls @ 999 mls/hr IV .Q1H1M STA Stop: 01/01/17 23:13 Last Admin: 01/01/17 22:51 Dose: 999 mls/hr Iohexol (Omnipaque 350 100 Ml) Confirm Administered Dose 350 mg .ROUTE .STK-MED ONE Stop: 01/01/17 23:13 Ketorolac Tromethamine (Toradol) 30 mg IVP STAT STA Stop: 01/01/17 22:14 Last Admin: 01/01/17 22:51 Dose: 30 mg - PA / [employer] / Resident Statement MD/DO has reviewed & agrees with the documentation as recorded. <Renny Ortiz - Last Filed: 01/02/17 01:03> - Scribe Statement The provider has reviewed the documentation as recorded by the Scribe <Melyssa Fields - Last Filed: 01/02/17 02:29> - Scribe Statement Cnoy Gaona Provider Scribe Attestation: All medical record entries made by the Scribe were at my direction and personally dictated by me. I have reviewed the chart and agree that the record accurately reflects my personal performance of the history, physical exam, medical decision making, and the department course for this patient. I have also personally directed, reviewed, and agree with the discharge instructions and disposition. (Melyssa Fields) Disposition/Present on Arrival <Renny Ortiz - Last Filed: 01/02/17 01:03> - Present on Arrival Any Indicators Present on Arrival: No History of DVT/PE: No History of Uncontrolled Diabetes: No Urinary Catheter: No History of Decub. Ulcer: No History Surgical Site Infection Following: None - Disposition Have Diagnosis and Disposition been Completed?: Yes Disposition Time: 02:18 Patient Plan: Discharge <Melyssa Fields - Last Filed: 01/02/17 02:29> - Disposition Diagnosis: Abdominal pain, Cyst of left kidney, Pulmonary arteriovenous malformation Disposition: HOME/ ROUTINE Condition: GOOD Discharge Instructions (ExitCare): Kidney Cyst (ED) Additional Instructions: Motrin every 6 hours as needed for pain Increase fluids Follow up with primary care physician within the next 2 days regarding yours CAT SCAN findings. Return immediately if symptoms worsen persist or if new concerning symptoms develop Referrals: Manju Grady [Primary Care Provider] - Follow up with primary Sree Lafleur MD [Staff Provider] - Follow up with primary Andrea Rich MD [Staff Provider] - Follow up with primary Forms: [employer] (Bulgarian)
[2017-01-01] MEDS ORDERED: Sodium Chloride 0.9% 1,000 ML IV STA (22:13)
[2017-01-01 22:57] LABS: URINE BILIRUBIN SMALL (NEGATIVE); URINE BLOOD LARGE (NEGATIVE); URINE GLUCOSE (UA) NEGATIVE (NEGATIVE); URINE LEUKOCYTE ESTERASE NEGATIVE Leu/uL (NEGATIVE); URINE NITRATE NEGATIVE (NEGATIVE); URINE PROTEIN 30 mg/dL (<30 mg/dL)
[2017-01-01 22:58] LABS: URINE APPEARANCE CLOUDY (CLEAR); URINE COLOR DARK YELLOW (YELLOW)
[2017-01-01 23:02] LABS: ALB/GLOB RATIO 1.3 (1.1-1.8); ALBUMIN 4.2 g/dL (3.0-4.8); ALT/SGPT 37 U/L (7-56); AST/SGOT 27 U/L (15-39); BLOOD UREA NITROGEN 14 mg/dL (7-21); CALCIUM 9.3 mg/dL (8.4-10.5); GFR AFRICAN-AMERICAN > 60; GFR NON-AFRICAN AMERICAN > 60; LIPASE 193 U/L (23-300)
[2017-01-01 23:05] LABS: BASO # 0.01 K/mm3 (0.0-2.0); BASO % 0.1 % (0.0-3.0); EOS # 0.1 (0.0-0.7); EOS % 0.7 % (1.5-5.0); GRAN # 5.85 (1.4-6.5); GRAN % 67.3 % (50.0-68.0); HEMOGLOBIN 12.7 g/dL (12.0-16.0); LYMPH # 2.4 (1.2-3.4); MEAN CELL VOLUME 82.5 fl (80.0-105.0); MEAN CORPUSCULAR HEMOGLOBIN 27.1 pg (25.0-35.0); MEAN CORPUSCULAR HGB CONC 32.8 g/dl (31.0-37.0); MEAN PLATELET VOLUME 11.5 fl (7.0-11.0); MONO # 0.4 (0.1-0.6); MONO % 4.9 % (1.0-6.0); PLATELET COUNT 190 10^3/uL (120.0-450.0); RBC 4.69 10^6/uL (3.5-6.1); RED CELL DISTRIBUTION WIDTH 14.7 % (11.5-14.5); WHITE BLOOD COUNT 8.7 10^3/ul (4.5-11.0)
[2017-01-01] MEDS ORDERED: Iohexol 350 MG/100 ML VIAL ONE (23:12)
[2017-01-01 23:19] LABS: URINE EPITHELIAL CELLS 0 - 2 /hpf (0-5); URINE RBC TNTC /hpf (0-2)
[2017-01-01 23:20] LABS: URINE BACTERIA MOD (NEG)
--- NOTE | 2017-01-02 00:38 | CT ---
EXAM: CT Abdomen and Pelvis With Intravenous Contrast CLINICAL HISTORY: 46 years old, female; Pain; Abdominal pain; Prior surgery; Surgery type: Appendectomy - ; Additional info: Left abd and flank pain TECHNIQUE: Axial computed tomography images of the abdomen and pelvis with intravenous contrast. All CT scans at this facility use one or more dose reduction techniques, viz.: automated exposure control; ma/kV adjustment per patient size (including targeted exams where dose is matched to indication; i.e. head); or iterative reconstruction technique. Coronal and sagittal reformatted images were created and reviewed. CONTRAST: 93 mL of OMNI 350 administered intravenously. COMPARISON: No relevant prior studies available. FINDINGS: 6 mm nodular focus in association with pulmonary vascular malformation at the right lung base. The liver, spleen, pancreas and adrenal glands demonstrate no acute abnormalities. No CT evidence of acute cholecystitis. Ultrasound can be provide more sensitive evaluation of the biliary system. The kidneys are symmetric with no evidence of hydronephrosis. 2.2 cm left renal cyst, question peripheral calcification. The aorta is unremarkable. Evaluation of bowel limited without enteric contrast. Small hiatal hernia. The small and large bowel as visualized demonstrate no evidence of obstruction or clear focus of inflammation. Colonic diverticula. Status post appendectomy. Heterogeneous appearance to the uterus, question leiomyomatous changes. No ascites. No free air. Scoliosis. IMPRESSION: No definitive acute CT finding to correspond to reported history. 6 mm nodular focus in association with pulmonary vascular malformation at the right lung base. 2.2 cm left renal cyst, question peripheral calcification. Small hiatal hernia. Colonic diverticula. Heterogeneous appearance to the uterus, question leiomyomatous changes. Ultrasound can provide more sensitive evaluation of pelvic viscera.
[2017-01-02 01:15] VITALS: BP 123/77; PULSE 71; RESP 16; TEMP 98
[2017-01-02 02:27] VITALS: O2SAT 98
== END 2017-01-02 02:27 | disposition home or self-care (01) ==
LOC: ED 20:28
DX: R10.9 Unspecified abdominal pain (principal); N28.1 Cyst of kidney, acquired; Q25.72 Congenital pulmonary arteriovenous malformation
CPT/HCPCS: 74177; 80053; 81001; 83690; 85025; 96374; 99284; J1885; J7040; Q9967